=== PATIENT | male | born 1955 | race African-American/Black ===

== ENCOUNTER 2019-04-25 15:43 | Emergency (ER) | payer MEDICAID ==
[~2019-04-25] VITALS: Ht 185.4 cm; Wt 79.5 kg
[2019-04-25 16:45] LABS: BASOPHILS # (AUTO) 0.1 X10'3 (0-0.2); EOSINOPHILS # (AUTO) 0.1 X10'3 (0-0.9); EOSINOPHILS % (AUTO) 1.8 % (0-6); HEMATOCRIT 40.6 % (42.0-52.0); HEMOGLOBIN 13.5 g/dl (14.0-17.9); LYMPHOCYTES # (AUTO) 1.8 X10'3 (1.1-4.8); LYMPHOCYTES % (AUTO) 23.8 % (21-51); MEAN CORPUSCULAR HEMOGLOBIN 33.4 PG (27.0-31.0); MEAN CORPUSCULAR HGB CONC 33.2 g/dL (33.0-36.5); MEAN CORPUSCULAR VOLUME 100.5 FL (78-98); MEAN PLATELET VOLUME 7.8 FL (7.4-10.4); MONOCYTES # (AUTO) 0.6 X10'3 (0-0.9); MONOCYTES % (AUTO) 8.1 % (2-12); NEUTROPHILS % (AUTO) 65.3 % (42-75); PLATELET COUNT 273 X10'3 (140-440); RED BLOOD COUNT 4.04 X10'6 (4.70-6.10); RED CELL DISTRIBUTION WIDTH 13.4 % (11.5-14.5); WHITE BLOOD COUNT 7.7 X10'3 (4.5-11.0)
[2019-04-25 16:52] LABS: ALANINE AMINOTRANSFERASE 33 U/L (12-78); ALBUMIN 3.7 G/DL (3.4-5.0); ALBUMIN/GLOBULIN RATIO 1.1 (1.1-1.5); ALKALINE PHOSPHATASE 57 IU/L (46-116); ANION GAP 8 (8-16); ASPARTATE AMINO TRANSFERASE 17 U/L (10-37); BILIRUBIN,TOTAL 0.5 MG/DL (0.1-1.0); BLOOD UREA NITROGEN 10 MG/DL (7-18); CALCIUM 8.8 MG/DL (8.5-10.1); CHLORIDE 107 MMOL/L (99-107); GLUCOSE 72 MG/DL (70-104); POTASSIUM 3.8 MMOL/L (3.5-5.1); SODIUM 142 MMOL/L (135-145); TOTAL CARBON DIOXIDE 26.8 MMOL/L (24-32); TOTAL PROTEIN 7.1 G/DL (6.4-8.2); eGFR 75 ML/MIN
[2019-04-25 16:55] LABS: PARTIAL THROMBOPLASTIN TIME 30 SECONDS (22-32)
[2019-04-25 20:02] VITALS: BP 170/108
== END 2019-04-25 20:06 | disposition home or self-care (01) ==
LOC: ER 15:44
DX: I49.3 Ventricular premature depolarization (principal); R79.1 Abnormal coagulation profile; Z91.018 Allergy to other foods
CPT/HCPCS: 36415; 71045; 80053; 82948; 84484; 85025; 85610; 85730; 93005; 99284

== ENCOUNTER 2023-09-20 05:57 | Inpatient (IN) | payer MEDICAID ==
[2023-09-18 10:37] LABS: BILIRUBIN,URINE NEGATIVE (Neg); CLARITY,URINE CLEAR (Clear); COLOR,URINE YELLOW (Yellow); GLUCOSE, URINE NEGATIVE (Neg); KETONES,URINE NEGATIVE (Neg); LEUKOCYTE ESTERASE ,URINE NEGATIVE (Neg); NITRITES, URINE NEGATIVE (Neg); OCCULT BLOOD,URINE NEGATIVE (Neg); PROTEIN,URINE NEGATIVE (Neg); UROBILINOGEN,URINE 0.2 E.U/dL (0.2-1.0)
[2023-09-18 10:39] LABS: UA COLLECTION TYPE CLN CATCH MIDSTREAM
[2023-09-18 11:12] LABS: BASOPHILS # (AUTO) 0.1 X10'3 (0-0.2); EOSINOPHILS # (AUTO) 0.2 X10'3 (0-0.9); EOSINOPHILS % (AUTO) 3.6 % (0-6); LYMPHOCYTES # (AUTO) 1.4 X10'3 (1.1-4.8); LYMPHOCYTES % (AUTO) 22.4 % (21-51); MEAN CORPUSCULAR HEMOGLOBIN 33.4 PG (27.0-31.0); MEAN CORPUSCULAR HGB CONC 33.2 g/dL (33.0-36.5); MEAN CORPUSCULAR VOLUME 100.6 FL (78-98); MEAN PLATELET VOLUME 7.3 FL (7.4-10.4); MONOCYTES # (AUTO) 0.4 X10'3 (0-0.9); MONOCYTES % (AUTO) 6.4 % (2-12); NEUTROPHILS # (AUTO) 4.3 X10'3 (1.8-7.7); NEUTROPHILS % (AUTO) 66.6 % (42-75); PRE OP HEMATOCRIT 39.7 % (42.0-52.0); PRE OP HEMOGLOBIN 13.2 g/dL (14.0-17.9); PRE OP PLATELET COUNT 272 X10'3 (140-440); PRE OP WHITE BLOOD COUNT 6.4 10'3 (4.8-10.8); RED BLOOD COUNT 3.95 X10'6 (4.70-6.10); RED CELL DISTRIBUTION WIDTH 13.1 % (11.5-14.5)
[2023-09-18 11:51] LABS: ALBUMIN 3.6 G/DL (3.4-5.0); ALBUMIN/GLOBULIN RATIO 0.9 (1.1-1.5); ALKALINE PHOSPHATASE 77 IU/L (46-116); BLOOD UREA NITROGEN 12 MG/DL (7-18); CALCIUM 8.8 MG/DL (8.5-10.1); CHLORIDE 107 MMOL/L (99-107); CREATININE 0.92 MG/DL (0.60-1.10); FREE T4 (FREE THYROXINE) 0.96 NG/DL (0.73-1.40); PRE OP ALT 47 U/L (30-65); PRE OP ANION GAP 6 (8-16); PRE OP AST 28 U/L (10-37); PRE OP BILIRUB, TOTAL 0.3 MG/DL (0.0-1.0); PRE OP GLUCOSE 94 MG/DL (70-104); PRE OP POTASSIUM 4.1 MMOL/L (3.4-5.1); PRE OP SODIUM 138 MMOL/L (135-145); THYROID STIMULATING HORMONE 1.86 ulU/ml (0.34-4.50); TOTAL CARBON DIOXIDE 25.4 MMOL/L (24-32); TOTAL PROTEIN 7.4 G/DL (6.4-8.2); eGFR > 90 ML/MIN
[~2023-09-20] VITALS: Ht 185.4 cm; Wt 83.8 kg
[2023-09-20] VITALS (29 sets, daily range): BP systolic 120–144; BP diastolic 67–78; PULSE 48–68; RESP 12–22; TEMP 97–100.3; O2SAT 96–100
[~2023-09-20 05:57] MED LIST: ALBU10.7 INH; AMLO-708 PO; ASPI-1397 PO; ATOR40TA72 PO; BUDE10.22 INH; GABA-530 PO; LOSA100T58 PO; MEXI150C PO; OMEP20CA16 PO; albuterol 2.5 MG/3 ML nebule NEB ONE; albuterol 2.5 MG/3 ML nebule NEB PRN; cefazolin 2gm/D5W 100mL 100 ML IV ONE; famotidine 20mg tablet PO ONE
[2023-09-20] MEDS: ringers solution, lacted 1,000 ML IV SCH (07:12)
[2023-09-20] MEDS ORDERED: midazolam 1 mg/ML 2ml injection ONE (08:35)
[2023-09-20] MEDS ORDERED: fentaNYL /PF 50mcg/ml 5ml ampule ONE (08:40)
[2023-09-20] MEDS ORDERED: BUPIVACAINE liposomal/PF 13.3 MG/ML vial IM ONE (08:43)
[2023-09-20] MEDS ORDERED: BUPIVAcaine/PF 2.5mg/ml (0.25%) 10ml vial ONE (08:43)
[2023-09-20] MEDS ORDERED: morphine 2 MG/ML inj. syringe IV PRN (08:50)
[2023-09-20] MEDS ORDERED: ondansetron/PF 4mg/2ml inj IV PRN ×2 (08:50→10:40)
[2023-09-20] MEDS ORDERED: morphine 4 MG/ML inj SYRINge IV PRN (08:50)
[2023-09-20] MEDS ORDERED: meperidine/PF 25mg/ml syringe IV PRN ×3 (08:50)
[2023-09-20] MEDS ORDERED: ringers solution, lacted 1,000 ML IV SCH (08:50)
[2023-09-20] MEDS ORDERED: proCHLORperazine 10 MG/2 ml inj IV PRN (08:50)
[2023-09-20] MEDS ORDERED: furosemide 20 MG/2 ML vial ONE (09:02)
[2023-09-20] MEDS ORDERED: ondansetron/PF 4mg/2ml inj ONE (09:02)
[2023-09-20] MEDS ORDERED: sevoflurane 250ml liquid IH ONE (09:02)
[2023-09-20] MEDS ORDERED: oxyCODONE/APAP 5-325mg tablet PO PRN (10:40)
[2023-09-20] MEDS ORDERED: naloxone 0.4 mg/ml inj IV PRN (10:40)
[2023-09-20] MEDS ORDERED: dexamethasone sod phosphate 4mg/ml inj. ONE (10:43)
[2023-09-20] MEDS ORDERED: neostigmine methylsulfate 1 MG/ML 10ml vial ONE (10:43)
[2023-09-20] MEDS ORDERED: albumin (Human) 5% 250ml 250 ML IV ONE (10:43)
[2023-09-20] MEDS ORDERED: propofol inj 20 ML IV ONE (10:43)
[2023-09-20] MEDS ORDERED: LIDOcaine 2% (20mg/ml) 5ml vial ONE (10:43)
[2023-09-20] MEDS ORDERED: acetaminophen 1,000mg/100ml IV 100 ML IV ONE (10:43)
[2023-09-20] MEDS ORDERED: glycopyrrolate 0.2mg/ml inj ONE (10:43)
[2023-09-20] MEDS ORDERED: rocuronium 10mg/ml inj IV ONE ×2 (10:43→12:31)
[2023-09-20] MEDS ORDERED: albuterol 2.5 MG/3 ML nebule NEB PRN (12:45)
[2023-09-20] MEDS: HYDROmorph/NS 0.2 mg/ml PCA 100 ML IV SCH ×6 (14:17→23:00)
[2023-09-20] MEDS ORDERED: PCA WASTE DOCUMENTATION 1 MG ML MC SCH (19:00)
[2023-09-20] MEDS: budesonide 0.5mg/2ml UD nebule IH SCH (20:00)
[2023-09-21] VITALS (10 sets, daily range): BP systolic 132–154; BP diastolic 65–87; PULSE 55–66; RESP 16–19; TEMP 97.3–98.9; O2SAT 93–100
[2023-09-21] MEDS: HYDROmorph/NS 0.2 mg/ml PCA 100 ML IV SCH ×12 (01:00→23:00)
[2023-09-21] MEDS: ringers solution, lacted 1,000 ML IV SCH (01:13)
[2023-09-21] MEDS: aspirin 81mg, enteric-coated 1 TAB TABLET.DR PO SCH (07:30)
[2023-09-21] MEDS: atorvastatin 20mg tablet PO SCH (07:30)
[2023-09-21] MEDS: amLODIPine 5mg tablet PO SCH (07:31)
[2023-09-21] MEDS: gabapentin 100mg capsule PO SCH (07:31)
[2023-09-21] MEDS: pantoprazole 40mg Tablet.DR PO SCH (07:31)
[2023-09-21] MEDS: losartan 50mg tablet PO SCH (07:32)
[2023-09-21] MEDS: budesonide 0.5mg/2ml UD nebule IH SCH ×2 (07:51→20:00)
[2023-09-22] VITALS (8 sets, daily range): BP systolic 136–156; BP diastolic 71–81; PULSE 55–71; RESP 12–18; TEMP 97.9–99.1; O2SAT 94–99
[2023-09-22] MEDS: HYDROmorph/NS 0.2 mg/ml PCA 100 ML IV SCH ×12 (01:00→23:00)
[2023-09-22] MEDS: PCA WASTE DOCUMENTATION 1 MG ML MC PRN (03:46)
[2023-09-22] MEDS: budesonide 0.5mg/2ml UD nebule IH SCH ×2 (08:00→20:00)
[2023-09-22] MEDS: gabapentin 100mg capsule PO SCH (08:29)
[2023-09-22] MEDS: aspirin 81mg, enteric-coated 1 TAB TABLET.DR PO SCH (08:29)
[2023-09-22] MEDS: atorvastatin 20mg tablet PO SCH (08:30)
[2023-09-22] MEDS: amLODIPine 5mg tablet PO SCH (08:32)
[2023-09-22] MEDS: pantoprazole 40mg Tablet.DR PO SCH (08:33)
[2023-09-22] MEDS: losartan 50mg tablet PO SCH (08:33)
[2023-09-23] MEDS: HYDROmorph/NS 0.2 mg/ml PCA 100 ML IV SCH ×7 (01:00→12:08)
[2023-09-23 07:12] VITALS: BP 130/72; PULSE 63; RESP 16; TEMP 97.9; O2SAT 100
[2023-09-23] MEDS: pantoprazole 40mg Tablet.DR PO SCH (08:51)
[2023-09-23] MEDS: atorvastatin 20mg tablet PO SCH (08:51)
[2023-09-23] MEDS: gabapentin 100mg capsule PO SCH (08:51)
[2023-09-23] MEDS: aspirin 81mg, enteric-coated 1 TAB TABLET.DR PO SCH (08:51)
[2023-09-23] MEDS: losartan 50mg tablet PO SCH (08:51)
[2023-09-23] MEDS: amLODIPine 5mg tablet PO SCH (08:52)
[2023-09-23 09:27] VITALS: PULSE 66; RESP 16; O2SAT 100
[2023-09-23 09:29] VITALS: PULSE 62; RESP 16; O2SAT 96
[2023-09-23 11:17] VITALS: BP 139/82; PULSE 56; RESP 16; TEMP 97.6; O2SAT 99
[2023-09-23 12:08] VITALS: RESP 16
[2023-09-23] MEDS: PCA WASTE DOCUMENTATION 1 MG ML MC PRN (12:13)
== END 2023-09-23 12:41 | disposition home or self-care (01) | DRG 680 ==
LOC: PAS IN 05:57 → EDSTATUS 08:45 → ORTHO 4S 14:50
PROVIDERS: ADMIT Surgery; ATTEND Surgery
PROC: 0TBB0ZZ Excision of Bladder, Open Approach (ICD-10-PCS; 2023-09-20)
PROC: 3E0T3BZ Introduction of Anesthetic Agent into Peripheral Nerves and Plexi, Percutaneous Approach (ICD-10-PCS; 2023-09-20)
PROC: 0WBH0ZZ Excision of Retroperitoneum, Open Approach (ICD-10-PCS; 2023-09-20)
PROC: 0DBW0ZZ Excision of Peritoneum, Open Approach (ICD-10-PCS; principal; 2023-09-20 09:02)
DX: D49.89 Neoplasm of unspecified behavior of other specified sites (principal); D49.0 Neoplasm of unspecified behavior of digestive system; E03.9 Hypothyroidism, unspecified; K21.9 Gastro-esophageal reflux disease without esophagitis; I10 Essential (primary) hypertension; N13.4 Hydroureter; M19.90 Unspecified osteoarthritis, unspecified site; Z87.891 Personal history of nicotine dependence
CPT/HCPCS: 36415; 71045; 80053; 81003; 84439; 84443; 85025; 86885; 86900; 86901; 87081; 93005; 94640; 94760; A4615; A4618; A7000; C1758; C9290; G0378; J0131; J0690; J1100; J1170; J1940; J2250; J2405; J2704; J2710; J3010; J3490; J7040; J7120; P9045

== ENCOUNTER 2023-09-27 08:25 | Inpatient (IN) | payer MEDICAID ==
[~2023-09-27] VITALS: Ht 185.4 cm; Wt 77.3 kg
[~2023-09-27 08:25] MED LIST changes: -albuterol 2.5 MG/3 ML nebule NEB ONE; -albuterol 2.5 MG/3 ML nebule NEB PRN; -cefazolin 2gm/D5W 100mL 100 ML IV ONE; -famotidine 20mg tablet PO ONE
[2023-09-27] MEDS ORDERED: ondansetron/PF 4mg/2ml inj IV ONE (08:55)
[2023-09-27] MEDS ORDERED: HYDROmorphone 1 mg/ml syringe IV ONE ×2 (08:55→10:45)
[2023-09-27] MEDS ORDERED: ringers solution, lactated 1000ml IV soln IV ONE (08:55)
[2023-09-27 09:04] LABS: BASOPHILS # (AUTO) 0.1 X10'3 (0-0.2); BASOPHILS % (AUTO) 0.7 % (0-1); EOSINOPHILS % (AUTO) 0.1 % (0-6); HEMATOCRIT 35.1 % (42.0-52.0); HEMOGLOBIN 11.9 g/dl (14.0-17.9); LYMPHOCYTES # (AUTO) 0.8 X10'3 (1.1-4.8); LYMPHOCYTES % (AUTO) 6.1 % (21-51); MEAN CORPUSCULAR HEMOGLOBIN 33.5 PG (27.0-31.0); MEAN CORPUSCULAR HGB CONC 33.9 g/dL (33.0-36.5); MEAN CORPUSCULAR VOLUME 98.8 FL (78-98); MEAN PLATELET VOLUME 6.7 FL (7.4-10.4); MONOCYTES # (AUTO) 0.8 X10'3 (0-0.9); NEUTROPHILS # (AUTO) 10.9 X10'3 (1.8-7.7); NEUTROPHILS % (AUTO) 87.1 % (42-75); PLATELET COUNT 370 X10'3 (140-440); RED BLOOD COUNT 3.55 X10'6 (4.70-6.10); RED CELL DISTRIBUTION WIDTH 12.8 % (11.5-14.5); WHITE BLOOD COUNT 12.6 X10'3 (4.5-11.0)
[2023-09-27 09:16] LABS: ALANINE AMINOTRANSFERASE 38 U/L (12-78); ALBUMIN 3.1 G/DL (3.4-5.0); ALBUMIN/GLOBULIN RATIO 0.8 (1.1-1.5); ALKALINE PHOSPHATASE 84 IU/L (46-116); ANION GAP 8 (8-16); ASPARTATE AMINO TRANSFERASE 31 U/L (10-37); BILIRUBIN,TOTAL 0.7 MG/DL (0.1-1.0); BLOOD UREA NITROGEN 10 MG/DL (7-18); BUN/CREATININE RATIO 13.3 (10.0-20.0); CALCIUM 8.5 MG/DL (8.5-10.1); CHLORIDE 97 MMOL/L (99-107); CREATININE 0.75 MG/DL (0.60-1.10); GLUCOSE 106 MG/DL (70-104); POTASSIUM 3.6 MMOL/L (3.5-5.1); SODIUM 129 MMOL/L (135-145); TOTAL CARBON DIOXIDE 23.8 MMOL/L (24-32); TOTAL PROTEIN 7.2 G/DL (6.4-8.2); eCRCL 103 ML/MIN; eGFR > 90 ML/MIN
[2023-09-27] MEDS: ringers solution, lacted 1,000 ML IV SCH ×2 (12:42→22:05)
[2023-09-27] MEDS: ketorolac trometh. 30mg/ml inj. IV SCH ×2 (13:20→20:28)
[2023-09-27] MEDS: polyethylene glycol 3350 17gm powd pack PO SCH (13:46)
[2023-09-27] MEDS: sennosides/docusate sodium tablet PO SCH ×2 (13:46→20:20)
[2023-09-27] MEDS ORDERED: lactulose 20gm/30ml cup PO ONE (17:35)
[2023-09-27] MEDS ORDERED: oxyCODONE SR 10mg (sust. release) tab PO ONE (17:40)
[2023-09-27] MEDS ORDERED: albuterol 2.5 MG/3 ML nebule NEB PRN (17:50)
[2023-09-27] MEDS ORDERED: magnesium 4gm in 100ml NS 100 ML IV PRN (18:10)
[2023-09-27] MEDS ORDERED: bisacodyl 10mg suppository rectal RC PRN (18:10)
[2023-09-27] MEDS ORDERED: acetaminophen 325mg tablet PO PRN (18:10)
[2023-09-27] MEDS ORDERED: potassium Cl 20 mEq SR tablet PO PRN ×2 (18:10)
[2023-09-27] MEDS ORDERED: magnesium Cl slow-release 64mg tablet PO PRN (18:10)
[2023-09-27] MEDS ORDERED: magnesium 2GM in 50ml NS 50 ML IV PRN (18:10)
[2023-09-27] MEDS ORDERED: magnesium hydroxide 30ml (MOM) UD suspension PO PRN (18:10)
[2023-09-27] MEDS ORDERED: ondansetron/PF 4mg/2ml inj IV PRN (18:10)
[2023-09-27] MEDS ORDERED: potassium Cl 40MEQ/1/2NS 520ml 520 ML IV PRN (18:10)
[2023-09-27] MEDS: K and/or MAG REPLACEMENT MC SCH (20:00)
[2023-09-27] MEDS: losartan 50mg tablet PO SCH (20:18)
[2023-09-27] MEDS: docusate sod 100mg capsule PO SCH (20:20)
[2023-09-27] MEDS: heparin, porcine 5000 units/ml vial SQ SCH (20:20)
[2023-09-27 20:50] VITALS: BP 175/92; PULSE 67; RESP 20; TEMP 98.4; O2SAT 100
[2023-09-27 20:52] VITALS: PULSE 67; RESP 18; O2SAT 99
[2023-09-27 21:00] VITALS: RESP 18; O2SAT 99
[2023-09-27 22:00] VITALS: BP 145/94; PULSE 52; RESP 18; TEMP 97.5; O2SAT 100
[2023-09-27] MEDS: diatr meglu/diatrizoate 30ml oral sol.-(3 dose) bottle PO SCH (22:00)
[2023-09-28] VITALS (7 sets, daily range): BP systolic 111–153; BP diastolic 78–99; PULSE 54–72; RESP 14–20; TEMP 97.1–98.4; O2SAT 96–100
[2023-09-28] MEDS: ketorolac trometh. 30mg/ml inj. IV SCH ×2 (02:09→08:00)
[2023-09-28 04:03] LABS: BASOPHILS % (AUTO) 0.1 % (0-1); EOSINOPHILS % (AUTO) 0.1 % (0-6); HEMATOCRIT 35.4 % (42.0-52.0); HEMOGLOBIN 11.8 g/dl (14.0-17.9); LYMPHOCYTES # (AUTO) 0.9 X10'3 (1.1-4.8); MEAN CORPUSCULAR HEMOGLOBIN 32.9 PG (27.0-31.0); MEAN CORPUSCULAR HGB CONC 33.4 g/dL (33.0-36.5); MEAN CORPUSCULAR VOLUME 98.5 FL (78-98); MEAN PLATELET VOLUME 6.8 FL (7.4-10.4); MONOCYTES # (AUTO) 1.4 X10'3 (0-0.9); MONOCYTES % (AUTO) 8.7 % (2-12); NEUTROPHILS # (AUTO) 13.2 X10'3 (1.8-7.7); NEUTROPHILS % (AUTO) 85.1 % (42-75); PLATELET COUNT 397 X10'3 (140-440); RED CELL DISTRIBUTION WIDTH 12.7 % (11.5-14.5); WHITE BLOOD COUNT 15.5 X10'3 (4.5-11.0)
[2023-09-28 04:22] LABS: ALANINE AMINOTRANSFERASE 33 U/L (12-78); ALBUMIN 2.9 G/DL (3.4-5.0); ALBUMIN/GLOBULIN RATIO 0.7 (1.1-1.5); ALKALINE PHOSPHATASE 83 IU/L (46-116); ANION GAP 9 (8-16); ASPARTATE AMINO TRANSFERASE 30 U/L (10-37); BILIRUBIN,TOTAL 0.7 MG/DL (0.1-1.0); BLOOD UREA NITROGEN 28 MG/DL (7-18); BUN/CREATININE RATIO 9.3 (10.0-20.0); CALCIUM 8.9 MG/DL (8.5-10.1); CHLORIDE 99 MMOL/L (99-107); GLUCOSE 130 MG/DL (70-104); MAGNESIUM 2.1 MG/DL (1.5-2.4); POTASSIUM 4.9 MMOL/L (3.5-5.1); SODIUM 134 MMOL/L (135-145); TOTAL CARBON DIOXIDE 25.7 MMOL/L (24-32); eCRCL 26 ML/MIN; eGFR 25 ML/MIN
[2023-09-28 06:39] LABS: LYMPHOCYTES # (AUTO) 0.5 X10'3 (1.1-4.8)
[2023-09-28 06:42] LABS: BASOPHILS # (AUTO) 0.2 X10'3 (0-0.2); BASOPHILS % (AUTO) 1.3 % (0-1); EOSINOPHILS % (AUTO) 0 % (0-6); HEMATOCRIT 34.8 % (42.0-52.0); HEMOGLOBIN 11.9 g/dl (14.0-17.9); MEAN CORPUSCULAR HEMOGLOBIN 33.7 PG (27.0-31.0); MEAN CORPUSCULAR HGB CONC 34.2 g/dL (33.0-36.5); MEAN CORPUSCULAR VOLUME 98.4 FL (78-98); MEAN PLATELET VOLUME 7.1 FL (7.4-10.4); MONOCYTES # (AUTO) 0.8 X10'3 (0-0.9); MONOCYTES % (AUTO) 4.9 % (2-12); NEUTROPHILS # (AUTO) 15.2 X10'3 (1.8-7.7); NEUTROPHILS % (AUTO) 90.8 % (42-75); PLATELET COUNT 393 X10'3 (140-440); RED BLOOD COUNT 3.54 X10'6 (4.70-6.10); WHITE BLOOD COUNT 16.7 X10'3 (4.5-11.0)
[2023-09-28] MEDS: budesonide 0.5mg/2ml UD nebule IH SCH (07:43)
[2023-09-28] MEDS: heparin, porcine 5000 units/ml vial SQ SCH ×2 (08:00→19:08)
[2023-09-28] MEDS: K and/or MAG REPLACEMENT MC SCH ×2 (08:00→19:40)
[2023-09-28] MEDS: polyethylene glycol 3350 17gm powd pack PO SCH (08:22)
[2023-09-28] MEDS: diatr meglu/diatrizoate 30ml oral sol.-(3 dose) bottle PO SCH ×2 (08:22→13:44)
[2023-09-28] MEDS: atorvastatin 20mg tablet PO SCH (08:22)
[2023-09-28] MEDS: pantoprazole 40mg Tablet.DR PO SCH (08:22)
[2023-09-28] MEDS: sennosides/docusate sodium tablet PO SCH ×2 (08:23→19:06)
[2023-09-28] MEDS: docusate sod 100mg capsule PO SCH ×2 (08:23→19:06)
[2023-09-28] MEDS: losartan 50mg tablet PO SCH (08:24)
[2023-09-28] MEDS: amLODIPine 5mg tablet PO SCH (08:24)
[2023-09-28] MEDS ORDERED: ringers solution, lacted 1,000 ML IV STA (09:36)
[2023-09-28 11:10] LABS: LARGE PLATELETS FEW; PLATELET ESTIMATE NORMAL
[2023-09-28] MEDS: piperacillin/tazo 3.375gm/50ml 50 ML IV SCH ×2 (11:44→16:42)
[2023-09-28] MEDS: ringers solution, lacted 1,000 ML IV SCH (11:44)
[2023-09-28] MEDS ORDERED: morphine 2 MG/ML inj. syringe IV PRN (12:40)
[2023-09-28] MEDS ORDERED: gabapentin 300mg capsule PO SCH (13:00)
[2023-09-28] MEDS: normal saline 1000ml 1,000 ML IV SCH ×2 (13:28→23:00)
[2023-09-28] MEDS ORDERED: lactulose 20gm/30ml cup PO ONE (15:55)
[2023-09-28] MEDS: HYDROcodone/acetaminophen 5mg/325mg tablet PO PRN (19:09)
[2023-09-28 19:32] LABS: SODIUM,URINE RANDOM 60 MEQ/L
[2023-09-28 19:45] LABS: BILIRUBIN,URINE NEGATIVE (Neg); CLARITY,URINE SLIGHTLY CLOUDY (Clear); COLOR,URINE YELLOW (Yellow); GLUCOSE, URINE NEGATIVE (Neg); KETONES,URINE TRACE mg/dl (Neg); LEUKOCYTE ESTERASE ,URINE NEGATIVE (Neg); NITRITES, URINE NEGATIVE (Neg); OCCULT BLOOD,URINE MODERATE (Neg); PROTEIN,URINE 100 mg/dl (Neg); UROBILINOGEN,URINE 0.2 E.U/dL (0.2-1.0)
[2023-09-28 20:04] LABS: UA COLLECTION TYPE NON-SPECIFIED
[2023-09-28 20:09] LABS: MUCUS STRANDS FEW /LPF (Neg); SQUAMOUS EPITHELIAL CELL,UR FEW /LPF (FEW)
[2023-09-28 20:13] LABS: BACTERIA,URINE 1+ /HPF (Neg)
[2023-09-28 20:15] LABS: TRANSITIONAL EPI CELLS,URINE FEW /HPF; URIC ACID CRYSTALS 2+ /HPF (NEGATIVE)
[2023-09-28 20:19] LABS: OSMOLALITY UA 631 MOSM/K (50-1400)
[2023-09-28] MEDS: gabapentin 300mg capsule PO SCH (22:39)
[2023-09-28 23:30] LABS: CREATININE 2.73 MG/DL (0.60-1.10); eCRCL 28 ML/MIN; eGFR 28 ML/MIN
[2023-09-29] VITALS (8 sets, daily range): BP systolic 116–131; BP diastolic 71–90; PULSE 56–83; RESP 13–18; TEMP 97.1–98.3; O2SAT 97–100
[2023-09-29] MEDS: piperacillin/tazo 3.375gm/50ml 50 ML IV SCH ×3 (00:04→16:15)
[2023-09-29] MEDS: budesonide 0.5mg/2ml UD nebule IH SCH (07:25)
[2023-09-29 07:32] LABS: BASOPHILS # (AUTO) 0.1 X10'3 (0-0.2); BASOPHILS % (AUTO) 0.8 % (0-1); EOSINOPHILS # (AUTO) 0.1 X10'3 (0-0.9); EOSINOPHILS % (AUTO) 0.6 % (0-6); HEMOGLOBIN 11.2 g/dl (14.0-17.9); LYMPHOCYTES # (AUTO) 1.2 X10'3 (1.1-4.8); LYMPHOCYTES % (AUTO) 11.2 % (21-51); MEAN CORPUSCULAR HEMOGLOBIN 33.4 PG (27.0-31.0); MEAN CORPUSCULAR HGB CONC 33.9 g/dL (33.0-36.5); MEAN CORPUSCULAR VOLUME 98.5 FL (78-98); MEAN PLATELET VOLUME 7.1 FL (7.4-10.4); MONOCYTES % (AUTO) 8.9 % (2-12); NEUTROPHILS # (AUTO) 8.4 X10'3 (1.8-7.7); NEUTROPHILS % (AUTO) 78.5 % (42-75); PLATELET COUNT 394 X10'3 (140-440); RED BLOOD COUNT 3.35 X10'6 (4.70-6.10); RED CELL DISTRIBUTION WIDTH 12.9 % (11.5-14.5); WHITE BLOOD COUNT 10.7 X10'3 (4.5-11.0)
[2023-09-29] MEDS: K and/or MAG REPLACEMENT MC SCH ×2 (08:00→20:00)
[2023-09-29] MEDS: normal saline 1000ml 1,000 ML IV SCH ×3 (08:00→20:39)
[2023-09-29] MEDS: heparin, porcine 5000 units/ml vial SQ SCH ×2 (08:00→20:30)
[2023-09-29] MEDS: docusate sod 100mg capsule PO SCH ×2 (08:10→20:28)
[2023-09-29] MEDS: pantoprazole 40mg Tablet.DR PO SCH (08:10)
[2023-09-29] MEDS: gabapentin 300mg capsule PO SCH (08:11)
[2023-09-29] MEDS: amLODIPine 5mg tablet PO SCH (08:11)
[2023-09-29] MEDS: losartan 50mg tablet PO SCH (08:12)
[2023-09-29] MEDS: atorvastatin 20mg tablet PO SCH (08:13)
[2023-09-29] MEDS: polyethylene glycol 3350 17gm powd pack PO SCH (08:13)
[2023-09-29 08:16] LABS: ALANINE AMINOTRANSFERASE 25 U/L (12-78); ALBUMIN 2.2 G/DL (3.4-5.0); ALBUMIN/GLOBULIN RATIO 0.6 (1.1-1.5); ALKALINE PHOSPHATASE 64 IU/L (46-116); ANION GAP 11 (8-16); ASPARTATE AMINO TRANSFERASE 17 U/L (10-37); BILIRUBIN,TOTAL 0.8 MG/DL (0.1-1.0); BLOOD UREA NITROGEN 26 MG/DL (7-18); BUN/CREATININE RATIO 20.3 (10.0-20.0); CALCIUM 8.2 MG/DL (8.5-10.1); CHLORIDE 104 MMOL/L (99-107); CREATININE 1.28 MG/DL (0.60-1.10); GLUCOSE 94 MG/DL (70-104); MAGNESIUM 2.1 MG/DL (1.5-2.4); PHOSPHORUS 3.5 MG/DL (2.3-4.5); POTASSIUM 3.7 MMOL/L (3.5-5.1); SODIUM 138 MMOL/L (135-145); TOTAL CARBON DIOXIDE 22.9 MMOL/L (24-32); TOTAL PROTEIN 6.1 G/DL (6.4-8.2); eCRCL 60 ML/MIN; eGFR 68 ML/MIN
[2023-09-29] MEDS: sennosides/docusate sodium tablet PO SCH ×2 (08:24→20:28)
[2023-09-29] MEDS: HYDROcodone/acetaminophen 5mg/325mg tablet PO PRN (20:29)
[2023-09-30] MEDS: piperacillin/tazo 3.375gm/50ml 50 ML IV SCH ×3 (01:09→16:00)
[2023-09-30] MEDS: normal saline 1000ml 1,000 ML IV SCH (05:25)
[2023-09-30 05:30] LABS: BASOPHILS # (AUTO) 0.1 X10'3 (0-0.2); EOSINOPHILS # (AUTO) 0.1 X10'3 (0-0.9); EOSINOPHILS % (AUTO) 1.8 % (0-6); HEMATOCRIT 31.1 % (42.0-52.0); HEMOGLOBIN 10.6 g/dl (14.0-17.9); LYMPHOCYTES # (AUTO) 1.5 X10'3 (1.1-4.8); LYMPHOCYTES % (AUTO) 21.3 % (21-51); MEAN CORPUSCULAR HEMOGLOBIN 33.7 PG (27.0-31.0); MEAN CORPUSCULAR HGB CONC 33.9 g/dL (33.0-36.5); MEAN CORPUSCULAR VOLUME 99.3 FL (78-98); MEAN PLATELET VOLUME 6.7 FL (7.4-10.4); MONOCYTES # (AUTO) 0.7 X10'3 (0-0.9); MONOCYTES % (AUTO) 10.2 % (2-12); NEUTROPHILS # (AUTO) 4.8 X10'3 (1.8-7.7); NEUTROPHILS % (AUTO) 65.7 % (42-75); PLATELET COUNT 398 X10'3 (140-440); RED BLOOD COUNT 3.13 X10'6 (4.70-6.10); WHITE BLOOD COUNT 7.3 X10'3 (4.5-11.0)
[2023-09-30 05:39] LABS: ALANINE AMINOTRANSFERASE 23 U/L (12-78); ALBUMIN/GLOBULIN RATIO 0.6 (1.1-1.5); ALKALINE PHOSPHATASE 59 IU/L (46-116); ANION GAP 5 (8-16); ASPARTATE AMINO TRANSFERASE 19 U/L (10-37); BILIRUBIN,TOTAL 0.6 MG/DL (0.1-1.0); BLOOD UREA NITROGEN 10 MG/DL (7-18); BUN/CREATININE RATIO 11.5 (10.0-20.0); CALCIUM 7.9 MG/DL (8.5-10.1); CHLORIDE 106 MMOL/L (99-107); CREATININE 0.87 MG/DL (0.60-1.10); GLUCOSE 95 MG/DL (70-104); MAGNESIUM 1.9 MG/DL (1.5-2.4); PHOSPHORUS 2.4 MG/DL (2.3-4.5); POTASSIUM 4.4 MMOL/L (3.5-5.1); SODIUM 139 MMOL/L (135-145); TOTAL CARBON DIOXIDE 27.9 MMOL/L (24-32); TOTAL PROTEIN 5.2 G/DL (6.4-8.2); eCRCL 89 ML/MIN; eGFR > 90 ML/MIN
[2023-09-30 06:59] VITALS: BP 166/76; PULSE 55; RESP 16; TEMP 97.8; O2SAT 98
[2023-09-30] MEDS: K and/or MAG REPLACEMENT MC SCH (08:00)
[2023-09-30] MEDS ORDERED: gabapentin 300mg capsule PO SCH (08:00)
[2023-09-30] MEDS: budesonide 0.5mg/2ml UD nebule IH SCH (08:00)
[2023-09-30 08:24] VITALS: PULSE 70; RESP 16; O2SAT 99
[2023-09-30] MEDS: sennosides/docusate sodium tablet PO SCH (09:10)
[2023-09-30] MEDS: pantoprazole 40mg Tablet.DR PO SCH (09:10)
[2023-09-30] MEDS: docusate sod 100mg capsule PO SCH (09:10)
[2023-09-30 09:11] VITALS: RESP 16
[2023-09-30] MEDS: polyethylene glycol 3350 17gm powd pack PO SCH (09:11)
[2023-09-30] MEDS: losartan 50mg tablet PO SCH (09:11)
[2023-09-30] MEDS: heparin, porcine 5000 units/ml vial SQ SCH (09:12)
[2023-09-30] MEDS: atorvastatin 20mg tablet PO SCH (09:12)
[2023-09-30] MEDS: amLODIPine 5mg tablet PO SCH (09:23)
[2023-09-30 11:34] VITALS: BP 132/76; PULSE 58; RESP 17; TEMP 97.1; O2SAT 100
[2023-09-30 14:00] VITALS: BP 131/90; PULSE 83; RESP 16; TEMP 97.1; O2SAT 98
[2023-09-30] MEDS ORDERED: LACT1CAP26 PO (14:12)
[2023-09-30] MEDS ORDERED: LEVO-65 PO ×3 (14:12→23:23)
[2023-09-30] MEDS ORDERED: METR-159 PO ×3 (14:12→23:23)
[2023-09-30] MEDS ORDERED: HYDR-3965 PO (15:08)
[2023-09-30] MEDS ORDERED: tamsulosin 0.4mg capsule PO ONE (16:55)
[2023-09-30] MEDS ORDERED: FLO0.4C PO (23:20)
== END 2023-09-30 19:30 | disposition home or self-care (01) ==
LOC: ER 08:26 → ED HOLD 12:11 → ORTHO 4S 20:50
PROVIDERS: ADMIT Family Medicine; ATTEND Family Medicine
PROC: 0DJW3ZZ Inspection of Peritoneum, Percutaneous Approach (ICD-10-PCS; principal; 2023-09-29)
DX: R18.8 Other ascites (principal); N17.0 Acute kidney failure with tubular necrosis; E78.5 Hyperlipidemia, unspecified; I10 Essential (primary) hypertension; K21.9 Gastro-esophageal reflux disease without esophagitis; R33.9 Retention of urine, unspecified; J45.909 Unspecified asthma, uncomplicated; K59.00 Constipation, unspecified; Z79.82 Long term (current) use of aspirin; Z85.028 Personal history of other malignant neoplasm of stomach; Z79.899 Other long term (current) drug therapy
CPT/HCPCS: 36415; 72192; 74018; 74176; 76705; 80053; 81001; 82565; 83735; 83935; 84100; 84132; 84145; 84300; 85008; 85025; 87081; 87207; 93306; 94640; 94760; 96361; 96374; 96375; 96376; 99285; A4314; A6449; C1729; G0378; J1170; J1644; J1885; J2405; J2543; J7030; J7120; Q9963

== ENCOUNTER 2023-10-01 09:28 | Emergency (ER) | payer MEDICAID ==
[~2023-10-01] VITALS: Ht 185.4 cm; Wt 82.7 kg
[~2023-10-01 09:28] MED LIST changes: +FLO0.4C PO; +HYDR-3965 PO; +LACT1CAP26 PO; +LEVO-65 PO; +METR-159 PO
[2023-10-01 10:18] LABS: BASOPHILS % (AUTO) 0.3 % (0-1); EOSINOPHILS % (AUTO) 0.3 % (0-6); HEMATOCRIT 34.8 % (42.0-52.0); HEMOGLOBIN 11.8 g/dl (14.0-17.9); LYMPHOCYTES % (AUTO) 8.3 % (21-51); MEAN CORPUSCULAR HEMOGLOBIN 33.6 PG (27.0-31.0); MEAN CORPUSCULAR HGB CONC 33.9 g/dL (33.0-36.5); MEAN CORPUSCULAR VOLUME 99.2 FL (78-98); MEAN PLATELET VOLUME 6.5 FL (7.4-10.4); MONOCYTES # (AUTO) 0.6 X10'3 (0-0.9); MONOCYTES % (AUTO) 5.1 % (2-12); NEUTROPHILS # (AUTO) 10.3 X10'3 (1.8-7.7); PLATELET COUNT 490 X10'3 (140-440); RED BLOOD COUNT 3.51 X10'6 (4.70-6.10); RED CELL DISTRIBUTION WIDTH 12.8 % (11.5-14.5)
[2023-10-01 10:25] LABS: BILIRUBIN,URINE NEGATIVE (Neg); CLARITY,URINE CLEAR (Clear); COLOR,URINE YELLOW (Yellow); GLUCOSE, URINE NEGATIVE (Neg); KETONES,URINE 15 mg/dl (Neg); LEUKOCYTE ESTERASE ,URINE NEGATIVE (Neg); NITRITES, URINE NEGATIVE (Neg); OCCULT BLOOD,URINE MODERATE (Neg); PROTEIN,URINE NEGATIVE (Neg); UROBILINOGEN,URINE 0.2 E.U/dL (0.2-1.0)
[2023-10-01 10:29] LABS: UA COLLECTION TYPE FOLEY CATH
[2023-10-01 10:34] LABS: BACTERIA,URINE FEW /HPF (Neg); MUCUS STRANDS NONE SEEN /LPF (Neg); SQUAMOUS EPITHELIAL CELL,UR NONE SEEN /LPF (FEW); WBC,URINE 0-4 /HPF (0-4)
[2023-10-01 10:39] LABS: ALANINE AMINOTRANSFERASE 24 U/L (12-78); ALBUMIN 2.5 G/DL (3.4-5.0); ALBUMIN/GLOBULIN RATIO 0.7 (1.1-1.5); ALKALINE PHOSPHATASE 69 IU/L (46-116); ANION GAP 9 (8-16); ASPARTATE AMINO TRANSFERASE 26 U/L (10-37); BILIRUBIN,TOTAL 0.4 MG/DL (0.1-1.0); BLOOD UREA NITROGEN 10 MG/DL (7-18); BUN/CREATININE RATIO 8.7 (10.0-20.0); CALCIUM 8.3 MG/DL (8.5-10.1); CHLORIDE 100 MMOL/L (99-107); CREATININE 1.15 MG/DL (0.60-1.10); GLUCOSE 117 MG/DL (70-104); LIPASE 23 U/L (16-77); POTASSIUM 3.8 MMOL/L (3.5-5.1); SODIUM 135 MMOL/L (135-145); TOTAL CARBON DIOXIDE 25.6 MMOL/L (24-32); TOTAL PROTEIN 6.3 G/DL (6.4-8.2); eCRCL 69 ML/MIN; eGFR 77 ML/MIN
[2023-10-01 12:40] VITALS: BP 144/83; PULSE 72; RESP 15; TEMP 98.2; O2SAT 100
== END 2023-10-01 12:58 | disposition home or self-care (01) ==
LOC: ER 09:28
DX: R33.9 Retention of urine, unspecified (principal); Z91.040 Latex allergy status; Z79.899 Other long term (current) drug therapy
CPT/HCPCS: 36415; 51702; 80053; 81001; 83690; 85025; 99285; A4314; A4358

== ENCOUNTER 2024-03-29 08:59 | Emergency (ER) | payer MEDICARE, MEDICAID ==
[~2024-03-29] VITALS: Ht 185.4 cm; Wt 81.4 kg
[~2024-03-29 08:59] MED LIST changes: -FLO0.4C PO; -HYDR-3965 PO
[2024-03-29 09:19] VITALS: BP 145/79; PULSE 62; O2SAT 97
[2024-03-29] MEDS ORDERED: CEPH-585 PO (11:54)
[2024-03-29 12:23] VITALS: RESP 16; TEMP 98
== END 2024-03-29 12:15 | disposition home or self-care (01) ==
LOC: ER 09:00
DX: L03.116 Cellulitis of left lower limb (principal); Z88.8 Allergy status to other drugs, medicaments and biological substances; Z91.018 Allergy to other foods; Z79.899 Other long term (current) drug therapy; Z79.82 Long term (current) use of aspirin; Z79.2 Long term (current) use of antibiotics
CPT/HCPCS: 73630; 99283; L3260